=== PATIENT | female | born 1955 | race Caucasian/White ===

== ENCOUNTER 2022-07-01 10:35 | Emergency (ER) | payer OTHER ==
[~2022-07-01] VITALS: Ht 147.3 cm; Wt 53.1 kg
[2022-07-01] MEDS ORDERED: CARBIDOPA-LEVO1 EA10 NGT (12:02)
[2022-07-01] MEDS ORDERED: SYNTHROID50 MCG PO (12:02)
== END 2022-07-01 15:21 | disposition home or self-care (01) ==
LOC: ER 10:35
DX: R51.9 Headache, unspecified (principal); Z88.2 Allergy status to sulfonamides; S09.90XA Unspecified injury of head, initial encounter; W01.0XXA Fall on same level from slipping, tripping and stumbling without subsequent striking against object, initial encounter; Y93.9 Activity, unspecified; Y92.019 Unspecified place in single-family (private) house as the place of occurrence of the external cause